=== PATIENT | male | born 1995 | race Caucasian/White ===

== ENCOUNTER 2023-01-12 22:17 | Emergency (ER) | payer OTHER ==
[2023-01-12] MEDS ORDERED: Lidocaine 1% PF 2 ML SDV INJECT ONE (22:41)
[2023-01-12] MEDS ORDERED: Diphtheria,Pertussis(Acell),Tetanus Vaccine 0.5 ML Syringe IM ONE (22:41)
[2023-01-13] MEDS ORDERED: oxyCODONE 5 MG Tab PO ONE (00:58)
[2023-01-13] MEDS ORDERED: Lidocaine 1% 5 ML VIAL INJECT ONE (01:08)
[2023-01-13] MEDS ORDERED: fentaNYL 50 MCG/ML SDV IVPUSH ONE (01:50)
[2023-01-13] MEDS ORDERED: Ketamine 500 mg/10 ML MDV IM ONE (02:02)
[2023-01-13] MEDS ORDERED: Propofol 200 MG/20 ML SDV IVPUSH ONE ×3 (02:02→02:56)
[2023-01-13] MEDS ORDERED: Ketamine 500 mg/10 ML MDV IV ONE (02:20)
== END 2023-01-13 03:26 | disposition home or self-care (01) ==
LOC: MW.ED 22:17
DX: S61.112A Laceration without foreign body of left thumb with damage to nail, initial encounter (principal); Z23 Encounter for immunization; W55.22XA Struck by cow, initial encounter
CPT/HCPCS: 11730; 73140; 90471; 90715; 96374; 99283; A9270; J2704; J3010; J3490; 12001